=== PATIENT | female | born 1970 | race Two or more races ===

== ENCOUNTER 2017-03-14 16:19 | Emergency (ER) | payer BC ==
[2017-03-14] MEDS ORDERED: ASPIRIN 81 MG TABLET, CHEWABLE PO ONE (16:21)
[2017-03-14] MEDS ORDERED: LORAZEPAM 1 MG TABLET PO ONE (16:56)
[2017-03-14] MEDS ORDERED: NAPROXEN 250 MG TABLET PO ONE (16:56)
--- NOTE | 2017-03-14 16:57 | ER Document Report ---
ED Cardiac - General Mode of Arrival: Wheelchair Information source: Patient TRAVEL OUTSIDE OF THE [place] IN LAST 30 DAYS: No - HPI Patient complains to provider of: Chest pain <SWETA GUO - Last Filed: 03/14/17 17:13> <SILVA MOONEY - Last Filed: 03/14/17 19:20> - General Chief Complaint: syncopal episode Stated Complaint: CHEST PAINS Time Seen by Provider: 03/14/17 16:28 Notes: Patient is a 47 year old female that presents to the emergency department via EMS after having a syncopal episode and chest pains. Patient states she was having a discussion with her new boss when she got upset and had a syncopal episode. She states that she has been stressed over the last few weeks due to work as well as having chest pains. Patient states that her chest pain is worse when she is stressed. Patient states that her blood pressure has been up lately but have yet to receive help for it. EMS states that she was alert upon arrival. (SWETA GUO) - Related Data Allergies/Adverse Reactions: No Known Allergies Allergy (Unverified 05/06/15 10:12) Past Medical History - General Information source: Patient - Social History Smoking Status: Never Smoker Chew tobacco use (# tins/day): No Frequency of alcohol use: None Drug Abuse: None Family History: Reviewed & Not Pertinent Patient has suicidal ideation: No Patient has homicidal ideation: No - Immunizations Hx Diphtheria, Pertussis, Tetanus Vaccination: Yes <SWETA GUO - Last Filed: 03/14/17 17:13> Review of Systems - Review of Systems Constitutional: No symptoms reported EENT: No symptoms reported Cardiovascular: See HPI, Chest pain, Syncope Respiratory: No symptoms reported Gastrointestinal: No symptoms reported Genitourinary: No symptoms reported Female Genitourinary: No symptoms reported Musculoskeletal: No symptoms reported Skin: No symptoms reported Hematologic/Lymphatic: No symptoms reported Neurological/Psychological: No symptoms reported -: Yes All other systems reviewed and negative <SWETA GUO - Last Filed: 03/14/17 17:13> Physical Exam - General General appearance: Appears well, Alert In distress: None - HEENT Head: Normocephalic, Atraumatic Eyes: Normal Conjunctiva: Normal Pupils: PERRL - Respiratory Respiratory status: No respiratory distress Chest status: Tender - left anterlateral chest wall tender to palpation Breath sounds: Normal Chest palpation: Normal - Cardiovascular Rhythm: Regular Heart sounds: Normal auscultation - Abdominal Inspection: Normal Bowel sounds: Normal Tenderness: Nontender - Back Back: Normal - Extremities General upper extremity: Normal inspection, Normal ROM General lower extremity: Normal inspection, Normal ROM. No: Edema - Neurological Neuro grossly intact: Yes Cognition: Normal Orientation: AAOx4 Nicole Coma Scale Eye Opening: Spontaneous Nicole Coma Scale Verbal: Oriented Nicole Coma Scale Motor: Obeys Commands Nicole Coma Scale Total: 15 Speech: Normal - Psychological Associated symptoms: Normal affect, Normal mood - Skin Skin Temperature: Warm Skin Moisture: Dry Skin Color: Normal <SWETA GUO - Last Filed: 03/14/17 17:13> - Vital signs Vitals: Temp Pulse Resp BP Pulse Ox 97.9 F 62 18 165/94 H 98 03/14/17 16:22 03/14/17 16:22 03/14/17 16:22 03/14/17 16:22 03/14/17 16:22 Course <SWETA GUO - Last Filed: 03/14/17 17:13> - Laboratory Result Diagrams: 03/14/17 17:11 03/14/17 17:11 - Diagnostic Test Radiology reviewed: Image reviewed, Reports reviewed - Chest x-ray is unremarkable - EKG Interpretation by Me EKG shows normal: Sinus rhythm, [place], Intervals, QRS Complexes, ST-T Waves Rate: Normal - 65 Rhythm: NSR <SILVA MOONEY - Last Filed: 03/14/17 19:20> - Re-evaluation Re-evalutation: 03/14/17 19:06 EKG is normal. Pain is reproducible on palpation. Patient is under a lot of stress at work. Cardiac enzymes are undetectable. Patient does have slightly elevated blood pressure which has been going on for some time but she has been able to get into see her primary care provider. She also thinks she may need some medication for stress to cope with her present employment circumstances. She will be encouraged to follow-up with her primary care provider this week to discuss treatment options for her blood pressure and her stress and anxiety. ( SILVA MOONEY) - Vital Signs Vital signs: Temp Pulse Resp BP Pulse Ox 97.9 F 62 19 165/94 H 99 03/14/17 16:22 03/14/17 16:22 03/14/17 16:34 03/14/17 16:34 03/14/17 16:34 Discharge <SWETA GUO - Last Filed: 03/14/17 17:13> <SILVA MOONEY - Last Filed: 03/14/17 19:20> - Discharge Clinical Impression: Chest wall pain, Syncope and collapse, Stress at work High blood pressure Qualifiers: Hypertension type: essential hypertension Qualified Code(s): I10 - Essential ( primary) hypertension Condition: Stable Disposition: HOME, SELF-CARE Additional Instructions: Chest Wall Pain: Your chest pain has been diagnosed as coming from the chest wall. This is often caused by straining the muscles or joints in the chest during physical activity, direct trauma, coughing, or vigorous vomiting. Persons with arthritis are especially prone to this type of pain, due to inflammation of the cartilage joints near the breast bone. Occasionally, no cause can be found. Rest from strenuous physical activity. This kind of chest pain is usually made worse by movement of the chest. Depending on the symptoms, we may prescribe medicine for pain, muscle relaxation, and antiinflammatory effects. If the pain is new, and seems to be due to muscle strain, cold packs can help. Otherwise, apply gentle warmth to the painful area for 15 minutes every hour or two. You should contact the doctor immediately if things change. Further evaluation is needed if you develop a fever or cough, if the nature of the pain changes, or if you become short of breath. Syncopal Episode: Syncope (fainting or near-fainting) can occur from many different health problems, including overwhelming stress. Your work-up may include tests for internal bleeding, heart disease, medication problems, or near-strokes. Tests are not always required, however, depending on the nature of your problem. The warning signs of an impending faint include: dizziness, lightheadedness , nausea, hot flashes, tingling, and weakness. If this happens, lay down and put your feet up, then wait until all of these symptoms have passed before standing up again. If these episodes become recurrent, or if you develop chest pain, heart palpitations, mental confusion, blurred vision, or headache, then you should call the physician, or go to the emergency room. High Blood Pressure: When your blood pressure was taken today it was elevated. Hypertension: The patient has been informed that they may have Hypertension based on a blood pressure reading in the emergency department. I recommend that the patient call the primary care provider listed on their discharge instructions or a physician of their choice this wee to arrange follow up for further evaluation of possible Hypertension. Sometimes, stress or illness causes a temporary elevation of your blood pressure. We suggest that you get your blood pressure measured three more times during the next few days to see if this is more than a temporary abnormality. If your blood pressure is greater than 150/90 on each occasion, you must have treatment. Some simple things you can do to help are: If you have blood pressure medicine but aren't using it regularly, start taking it again. Get some aerobic exercise for at least 20 minutes on a daily basis. (See your doctor before beginning a new exercise program.) Eat a low-fat diet. Lose excess weight. Avoid salty foods and avoid adding salt to any of the foods you eat. Avoid diet pills, decongestants, "energizing" herbs, and other medicines that elevate blood pressure. If left untreated, hypertension greatly enhances your risk for developing heart disease and strokes. Please don't ignore this problem. //////////////////////////////////////////////////////////////////////////////// //////////////////////////////////////////////////////////////////////////////// ///////////////// FOLLOW UP WITH YOUR DOCTOR THIS WEEK FOR EVALUATION AND TREATMENT OF YOUR BLOOD PRESSURE AND STRESS. TRY MOIST HEAT AND TAKE MOTRIN OR ALEVE FOR THE CHEST WALL PAIN. RETURN TO THE EMERGENCY ROOM IF ANY NEW OR WORSENING SYMPTOMS. Forms: Return to Work Scribe Attestation: 03/14/17 19:07 I personally performed the services described in the documentation, reviewed and edited the documentation which was dictated to the scribe in my presence, and it accurately records my words and actions. (SILVA MOONEY) Scribe Documentation - Scribe Written by Scribe:: Andrea Gomes,03/14/2017 17:19 acting as scribe for :: Tova <SWETA GUO - Last Filed: 03/14/17 17:13>
--- NOTE | 2017-03-14 17:09 | RADIOLOGY REPORT (SQ) ---
EXAM DESCRIPTION: CHEST SINGLE VIEW COMPLETED DATE/TIME: 03/14/2017 5:00 pm REASON FOR STUDY: cp COMPARISON: None. EXAM PARAMETERS: NUMBER OF VIEWS: One view. TECHNIQUE: Single frontal radiographic view of the chest acquired. RADIATION DOSE: NA LIMITATIONS: None. FINDINGS: LUNGS AND PLEURA: No opacities, masses or pneumothorax. No pleural effusion. MEDIASTINUM AND HILAR STRUCTURES: No masses. Contour normal. HEART AND VASCULAR STRUCTURES: Cardiac silhouette is at the upper limits of normal in size. BONES: No acute findings. HARDWARE: None in the chest. OTHER: No other significant finding. IMPRESSION: NO ACUTE RADIOGRAPHIC FINDING IN THE CHEST. TECHNICAL DOCUMENTATION: JOB ID: [id number] [employer]- All Rights Reserved
[2017-03-14 17:48] LABS: ABSOLUTE BASOPHILS # (AUTO) 0.1 10^3/uL (0.0-0.2); ABSOLUTE EOSINOPHILS # (AUTO) 0.1 10^3/uL (0.0-0.6); ABSOLUTE LYMPHOCYTES (AUTO) 2.6 10^3/uL (0.5-4.7); ABSOLUTE MONOCYTES (AUTO) 0.6 10^3/uL (0.1-1.4); ABSOLUTE NEUT (AUTO) 4.6 10^3/uL (1.7-8.2); BASOPHILS % (AUTO) 0.8 % (0-2); EOSINOPHILS % (AUTO) 0.8 % (0-6); HEMATOCRIT 41.3 % (36.0-47.0); HEMOGLOBIN 13.7 g/dL (12.0-15.5); HGB HCT DIFFERENCE -0.2; LYMPHOCYTES % (AUTO) 32.5 % (13-45); MEAN CORPUSCULAR HEMOGLOBIN 29.4 pg (27.0-33.4); MEAN CORPUSCULAR HGB CONC 33.1 g/dL (32.0-36.0); MEAN CORPUSCULAR VOLUME 89 fl (80-97); RED BLOOD COUNT 4.65 10^6/uL (3.72-5.28); RED CELL DISTRIBUTION WIDTH 12.9 % (11.5-14.0); SEGMENTED NEUTROPHILS % (AUTO) 58.9 % (42-78); WHITE BLOOD COUNT 7.9 10^3/uL (4.0-10.5)
[2017-03-14 17:58] LABS: ALANINE AMINOTRANSFERASE 30 U/L (9-52); ALBUMIN 4.3 g/dL (3.5-5.0); ALKALINE PHOSPHATASE 86 U/L (38-126); ANION GAP 11 (5-19); ASPARTATE AMINO TRANSFERASE 18 U/L (14-36); BILIRUBIN,DIRECT 0.4 mg/dL (0.0-0.4); BILIRUBIN,TOTAL 1.1 mg/dL (0.2-1.3); BLOOD UREA NITROGEN 12 mg/dL (7-20); CALCIUM 9.4 mg/dL (8.4-10.2); CARBON DIOXIDE 29 mmol/L (22-30); CHLORIDE 102 mmol/L (98-107); CREATINE KINASE 82 U/L (30-135); CREATININE RESULT 0.53 mg/dL (0.52-1.25); GLUCOSE 97 mg/dL (75-110); POTASSIUM 4.1 mmol/L (3.6-5.0); SODIUM 141.7 mmol/L (137-145)
[2017-03-14 18:07] LABS: CREATINE KINASE MB 1.29 ng/mL (<4.55)
[2017-03-14 18:08] LABS: TROPONIN I < 0.012 ng/mL
[2017-03-14 19:20] VITALS: BP 179/92
--- NOTE | 2017-03-14 19:36 | EKG REPORT ---
SEVERITY:- NORMAL ECG - SINUS RHYTHM : Confirmed by: Al Daniel MD 14-Mar-2017 19:36:37
== END 2017-03-14 19:30 | disposition home or self-care (01) ==
LOC: ER 16:19
DX: R07.89 Other chest pain (principal); R55 Syncope and collapse; I11.0 Hypertensive heart disease with heart failure
CPT/HCPCS: 36415; 71010; 80053; 82550; 82553; 84484; 85025; 93005; 93010; 99285